=== PATIENT | female | born 1990 | race Two or more races ===

== ENCOUNTER 2019-04-09 14:19 | Observation (INO) | payer MEDICAID ==
[~2019-04-09] VITALS: Ht 162.6 cm; Wt 120.7 kg
[~2019-04-09 14:19] MED LIST: OMEP20CA14 PO; ONDA4TAB5 PO
== END 2019-04-09 16:30 | disposition home or self-care (01) ==
LOC: 8 EST LDRP 14:19
PROVIDERS: ADMIT Obstetrics & Gynecology; ATTEND Obstetrics & Gynecology
DX: O36.8130 Decreased fetal movements, third trimester, not applicable or unspecified (principal); Z3A.37 37 weeks gestation of pregnancy
CPT/HCPCS: 76815; 76818; 99281; G0378

== ENCOUNTER 2019-04-11 08:28 | Observation (INO) | payer MEDICAID ==
[~2019-04-11] VITALS: Ht 162.6 cm; Wt 120.7 kg
== END 2019-04-11 11:25 | disposition home or self-care (01) ==
LOC: 8 EST LDRP 08:28
PROVIDERS: ADMIT Obstetrics & Gynecology; ATTEND Obstetrics & Gynecology
DX: O36.8130 Decreased fetal movements, third trimester, not applicable or unspecified (principal); Z3A.33 33 weeks gestation of pregnancy
CPT/HCPCS: 59025; 76815; 76818; G0378

== ENCOUNTER 2019-04-15 10:59 | Inpatient (IN) | payer MEDICAID ==
[~2019-04-15] VITALS: Ht 162.6 cm; Wt 120.7 kg
[2019-04-15] MEDS ORDERED: LIDOCAINE HCL 1% 20ML VIAL (Pyxis) INJ INFIL SCH (14:15)
[2019-04-15] MEDS ORDERED: CARBOPROST TROMETHAMINE 250 MCG/ML AMPUL IM PRN (14:15)
[2019-04-15] MEDS ORDERED: BUTORPHANOL TARTRATE 2 MG/ML VIAL IV PRN (14:15)
[2019-04-15] MEDS ORDERED: NALOXONE HCL 0.4 MG/ML 1ML VIAL IM PRN (14:15)
[2019-04-15] MEDS ORDERED: DEXT 5%/LR + PITOCIN 20UNITS/L 1,000 ML IV SCH ×2 (14:15→17:22)
[2019-04-15] MEDS ORDERED: LACTATED RINGERS 1,000 ML IV SCH (14:15)
[2019-04-15] MEDS ORDERED: METHYLERGONOVINE MALEATE 0.2 MG/ML IM PRN (14:15)
[2019-04-15 14:46] LABS: CLARITY URINE CLEAR (CLEAR); COLOR URINE YELLOW (YELLOW); KETONES URINE NEGATIVE (NEGATIVE); LEUKOCYTE ESTERASE URINE TRACE (NEGATIVE); NITRITE URINE NEGATIVE (NEGATIVE); OCCULT BLOOD URINE NEGATIVE (NEGATIVE); PROTEIN URINE TRACE (NEGATIVE); SPECIFIC GRAVITY URINE 1.025 (1.005-1.030); UROBILINOGEN URINE 0.2 E.U./dL (0.2-1.0)
[2019-04-15 15:05] LABS: *BARBITURATES SCREEN URINE NEGATIVE (NEGATIVE); *BENZODIAZEPINES SCREEN URINE NEGATIVE (NEGATIVE)
[2019-04-15 15:06] LABS: *AMPHETAMINES SCREEN URINE NEGATIVE (NEGATIVE); *COCAINE SCREEN URINE NEGATIVE (NEGATIVE); CANNABINOID URINE SCREEN NEGATIVE (NEGATIVE); METHADONE URINE SCREEN NEGATIVE (NEGATIVE); OPIATES URINE SCREEN NEGATIVE (NEGATIVE); PHENCYCLIDINE URINE SCREEN NEGATIVE (NEGATIVE)
[2019-04-15 15:20] LABS: BASOPHILS % 0.3 % (0.0-2.0); EOSINOPHILS % 0.3 % (0.0-5.0); HEMATOCRIT. 35.2 % (36.0-48.0); HEMOGLOBIN. 11.5 g/dL (12.0-16.0); LYMPHOCYTES % 16.7 % (20.0-50.0); MEAN CORPUSCULAR HEMOGLOBIN 28.8 pg (28.0-32.0); MEAN CORPUSCULAR VOLUME 88.1 fL (81.0-99.0); MEAN PLATELET VOLUME 10.1 fl (7.4-10.4); MONOCYTES % 3.4 % (2.0-8.0); NEUTROPHILS % 79.3 % (40.0-76.0); PLATELET 253 x1000/uL (130-400); RED CELL DISTRIBUTION WIDTH 14.4 % (11.6-14.6)
[2019-04-15 15:28] LABS: INR 0.9; PARTIAL THROMBOPLASTIN TIME 27.1 sec (23.4-31.0); PROTHROMBIN TIME 9.5 sec (9.6-11.0)
[2019-04-15 15:55] LABS: HEPATITIS B SURFACE ANTIGEN NEGATIVE
[2019-04-15] MEDS ORDERED: ACETAMINOPHEN WITH CODEINE 300/30MG TABLET PO PRN (17:30)
[2019-04-15] MEDS ORDERED: IBUPROFEN 400MG TABLET PO PRN (17:30)
[2019-04-15 20:35] VITALS: BP 139/68
[2019-04-15 21:00] VITALS: BP 118/78
[2019-04-15 21:30] VITALS: BP 119/70
[2019-04-15] MEDS: ACETAMINOPHEN WITH CODEINE 300/30MG TABLET PO PRN (21:50)
[2019-04-15 23:30] VITALS: BP 118/75
[2019-04-16 06:04] VITALS: BP 120/80
[2019-04-16] MEDS: ACETAMINOPHEN WITH CODEINE 300/30MG TABLET PO PRN ×2 (06:04→21:21)
[2019-04-16 07:32] VITALS: BP 100/55
[2019-04-16 08:50] LABS: BASOPHILS % 0.3 % (0.0-2.0); EOSINOPHILS % 0.2 % (0.0-5.0); HEMATOCRIT. 29.7 % (36.0-48.0); HEMOGLOBIN. 9.9 g/dL (12.0-16.0); MEAN CORPUSCULAR HEMOGLOBIN 29.3 pg (28.0-32.0); MEAN CORPUSCULAR VOLUME 87.8 fL (81.0-99.0); MONOCYTES % 3.7 % (2.0-8.0); NEUTROPHILS % 78.8 % (40.0-76.0); PLATELET 221 x1000/uL (130-400); RED BLOOD CELL COUNT 3.38 mill/uL (4.2-5.4); RED CELL DISTRIBUTION WIDTH 14.4 % (11.6-14.6)
[2019-04-16 16:04] VITALS: BP 121/68
[2019-04-16 20:00] VITALS: BP 118/68
[2019-04-17] VITALS: BP 114/69
[2019-04-17 04:00] VITALS: BP 115/70
[2019-04-17] MEDS ORDERED: IBUP-2030 MT (06:15)
[2019-04-17] MEDS: ACETAMINOPHEN WITH CODEINE 300/30MG TABLET PO PRN (06:32)
[2019-04-17 07:49] VITALS: BP 114/50
== END 2019-04-17 12:02 | disposition home or self-care (01) | DRG 560 ==
LOC: 8 EST LDRP 10:59 → OBSVTOIN 14:00 → 8EST 20:15
PROVIDERS: ADMIT Obstetrics & Gynecology; ATTEND Obstetrics & Gynecology
PROC: 10E0XZZ Delivery of Products of Conception, External Approach (ICD-10-PCS; principal; 2019-04-15)
PROC: 0KQM0ZZ Repair Perineum Muscle, Open Approach (ICD-10-PCS; 2019-04-15)
DX: O48.0 Post-term pregnancy (principal); D62 Acute posthemorrhagic anemia; O70.1 Second degree perineal laceration during delivery; O99.02 Anemia complicating childbirth; Z37.0 Single live birth; Z3A.40 40 weeks gestation of pregnancy
CPT/HCPCS: 36415; 80305; 81003; 85025; 86592; 86703; 86762; 86850; 86900; 87340; 99281; G0378; J0595; J2590; J3490; J7120

== ENCOUNTER 2021-04-25 21:45 | Emergency (ER) | payer MEDICAID ==
[~2021-04-25] VITALS: Ht 162.6 cm; Wt 123.0 kg
[~2021-04-25 21:45] MED LIST changes: +IBUP-2030 MT; -OMEP20CA14 PO; -ONDA4TAB5 PO
[2021-04-25 23:57] LABS: BASOPHILS % 0.3 % (0.0-2.0); CHLORIDE 103 mEq/L (98-107); EOSINOPHILS % 0.7 % (0.0-5.0); HEMATOCRIT. 37.5 % (36.0-48.0); HEMOGLOBIN. 12.6 g/dL (12.0-16.0); LYMPHOCYTES % 13.5 % (20.0-50.0); MEAN CORPUSCULAR VOLUME 86.6 fL (81.0-99.0); MEAN PLATELET VOLUME 9.3 fl (7.4-10.4); MONOCYTES % 3.8 % (2.0-8.0); NEUTROPHILS % 81.7 % (40.0-76.0); PLATELET 254 x1000/uL (130-400); RED BLOOD CELL COUNT 4.33 mill/uL (4.2-5.4); RED CELL DISTRIBUTION WIDTH 13.4 % (11.6-14.6)
[2021-04-26 00:09] LABS: B-HCG QUANTITATIVE < 1 mIU/mL (<3)
[2021-04-26 00:12] LABS: CLARITY URINE CLEAR (CLEAR); COLOR URINE YELLOW (YELLOW); KETONES URINE NEGATIVE (NEGATIVE); LEUKOCYTE ESTERASE URINE NEGATIVE (NEGATIVE); NITRITE URINE NEGATIVE (NEGATIVE); OCCULT BLOOD URINE TRACE (NEGATIVE); PROTEIN URINE NEGATIVE (NEGATIVE); SPECIFIC GRAVITY URINE 1.013 (1.005-1.030); UROBILINOGEN URINE 0.2 E.U./dL (0.2-1.0)
[2021-04-26 02:40] VITALS: BP 138/84
== END 2021-04-26 02:58 | disposition home or self-care (01) ==
LOC: ER 21:45
DX: R10.2 Pelvic and perineal pain (principal); R35.0 Frequency of micturition
CPT/HCPCS: 36415; 74176; 80053; 81003; 81025; 84702; 85025; 99284